=== PATIENT | male | born 1965 | race Caucasian/White ===

== ENCOUNTER 2016-11-22 06:29 | Day surgery (SDC) | payer OTHER ==
--- NOTE | 2016-11-06 12:01 | HP ---
DATE OF ADMISSION: 11/15/2016 HISTORY: This is a 51-year-old man who presents for left deltoid muscle biopsy. The patient has had a several-year history of pain in his upper extremities associated with some weakness. He has also had elevation of his creatine kinase in the 800 range. Request made by medical service for muscle biopsy. Patient's past medical history is significant for hypertension, arthritis, and a history of prostate cancer. No known history of heart disease; diabetes; respiratory, renal or hepatic insufficiency. PAST SURGICAL HISTORY: Nil. ALLERGIES: None known. REGULAR MEDICATIONS: Meloxicam, lisinopril. SOCIAL HISTORY: Negative tobacco, negative alcohol. FAMILY HISTORY: Father with history of hypertension; mother with history of hypertension, asthma. Siblings: One with hypertension. REVIEW OF SYSTEMS: Nil. PHYSICAL EXAMINATION: On examination of the upper extremities, there are no neurovascular deficits noted. There is no obvious muscle wasting. Full range of motion bilaterally. IMPRESSION: A 51-year-old man with upper extremity muscle pain and weakness associated with an elevated creatine kinase for several years. Rule out myopathy. PLAN: Left deltoid muscle biopsy. Indications, alternatives, possible complications reviewed. Consent obtained. Patient was seen preoperatively by Dr. Roe. Please refer to his notes for those medical details. Mary CARRERO/[id number] cc: Tyron Roe MD
[2016-11-21 11:16] VITALS: BMI 25.8
[2016-11-22] MEDS ORDERED: MIDAZOLAM HCL 2 MG/2 ML SINGLE DOSE VIAL ONE ×2 (07:46→08:14)
[2016-11-22] MEDS ORDERED: PROPOFOL 20 ML ONE (07:46)
[2016-11-22] MEDS ORDERED: LIDOCAINE 1%/EPI 1:100000 (50 ML MULTI DOSE VIAL) ONE (08:11)
[2016-11-22] MEDS ORDERED: LEVOFLOXACIN 500 MG IVPB 100 ML IVPB ONE (08:17)
[2016-11-22] MEDS ORDERED: LEVOFLOXACIN 500 MG PREMIX BAG IVPB ONE (08:17)
[2016-11-22] MEDS ORDERED: LIDOCAINE 1%/EPI 1:100000 (50 ML MULTI DOSE VIAL) INF ONE ×2 (08:27)
[2016-11-22] MEDS ORDERED: DEXAMETHASONE SOD PHOSPHATE 4 MG/1 ML VIAL ONE (08:31)
[2016-11-22] MEDS ORDERED: KETOROLAC TROMETHAMINE 30 MG/1 ML VIAL ONE (08:31)
[2016-11-22] MEDS ORDERED: ONDANSETRON 4 MG/2 ML VIAL IVPUSH PRN (08:49)
[2016-11-22] MEDS ORDERED: oxyCODONE HCL 5 MG TABLET PO PRN (08:49)
[2016-11-22] MEDS ORDERED: LACTATED RINGERS SOLUTION 1,000 ML IV SCH (09:00)
[2016-11-22 09:28] VITALS: TEMP 98.4
[2016-11-22 10:33] VITALS: BP 134/65; PULSE 84
--- NOTE | 2016-11-22 20:14 | OP ---
DATE OF OPERATION: 11/22/2016 PREOPERATIVE DIAGNOSIS: Clinical myositis/elevated CPK. POSTOPERATIVE DIAGNOSIS: Clinical myositis/elevated CPK (final pathology pending). PROCEDURE: Left deltoid muscle/intermediate wound closure (5 cm). OPERATING SURGEON: Joy Wood MD SECURITY TEST ENGINEER: None. ANESTHESIA: Barron Morgan MD (Local/MAC) HISTORY: A 51-year-old man and through the ambulatory surgical unit for left deltoid muscle biopsy at the request of the medical service to rule out an underlying myositis. Indications, alternatives, possible complications reviewed. Consent obtained. PROCEDURE: With the patient in the right lateral decubitus position, the left deltoid region was prepped and draped in usual sterile fashion using chlorhexidine. A 5 cm longitudinal incision was made over the central aspect of the deltoid musculature. The incision was deepened into the subcutaneous space. The subcutaneous tissues were divided. The muscle fascia was identified and incised. A small piece of tongue depressor was used to affix the muscle. It was placed in the wound and the muscle was affixed to the small piece of wooden tongue depressor using interrupted 3-0 chromic sutures. Using sharp dissection, a portion of the muscle was harvested, which was adherent to the wooden tongue depressor. The specimen was delivered and sent fresh to Pathology. After adequate hemostasis, the wound was closed in layers. The fascia layer was approximated using interrupted 3-0 chromic suture. Subcutaneous layer was approximated with interrupted 3-0 chromic suture. Subcuticular was approximated with interrupted 4-0 Biosyn suture. The skin edges were approximated using 4-0 Biosyn in subcuticular space in continuous fashion. Dermabond applied. Procedure terminated. Instrument count correct. Estimated blood loss minimal. SPECIMEN: Left deltoid muscle biopsy. DRAINS: None. IMPLANT: None. Patient tolerated procedure, procedure was terminated. JOY WOOD M.D. SYED/[id number] cc: Tyron Roe MD MTD
--- NOTE | 2016-11-30 18:09 | PATH ---
Surgical Pathology Report Patient Name: LISE URBAN [facility]. Rec. #: [id number] /Age/Gender: 1965 (Age: 51) / M Account: [id number] Location: [facility] SUR[facility]ICAL Taken: 11/22/2016 Received: 11/22/2016 Reported: 11/30/2016 Physicians: Wellington Wood M.D. Specimen(s) Received MUSCLE BIOPSY SEND OUT Clinical History According to Dr. Wellington Wood's note dated 11/08/16, the patient is a 51 year old man with hypertension and a several year history of pain and weakness in his upper extremities. CK has been elevation (~800). Final Diagnosis MUSCLE, UNSPECIFIED SITE, BIOPSY: SKELETAL MUSCLE WITH MILD NONSPECIFIC ABNORMALITY (SEE COMMENT). Comment: The muscle biopsy shows scattered atrophic fibers with a non-specific distribution pattern. A few ring fibers are present. The etiology of these non-specific changes are undeterminable on purely morphological grounds. There is no myonecrosis, regeneration or inflammation in this biopsy. Microscopic description: Fiber size; there scattered, mildly atrophic fibers without grouping. An ATPase stain shows atrophic fibers are either type 1 or type 2. There is no significant increase in the number of internally nucleated fibers. Targetoid structures: A few fibers show irregular central pallor. Necrotic sarcoplasm: none. Regeneration: none. Rimmed vacuoles: none. There are a few ring fibers by HADH. No fibers harbor abnormal intracytoplasmic structures such as rods and cytoplasmic bodies. While a few fibers exhibit slight sarcolemmal enhancement by SDH, no characteristic ragged blue fibers are seen. An acid phosphatase stain shows no abnormally aggregated enzymatic reaction in individual sarcoplasm. Myoadenylate deaminase is histochemically normal. Blood vessels: no features indicative of vasculitis. Cellular response: no significant inflammation seen. Interstitial tissue: A trichrome stain shows no significant fibrosis. Other: A thioflavin S stain is negative for amyloid. Immunohistochemical stains for HLA-A, B,C (MHC class I) show no significant immunoreaction along the surface of myofibers. Immunohistochemical staining for dystrophin (C-terminus, mid-nancy), alpha-sarcoglycan, dysferlin, and caveolin-3 reveal no specific protein deficiency. No significant upregulation of utrophin is detectable. See report from [facility], [id number]. Signed by Daniel Maza M.D. Electronically Signed Maury Willett M.D. Gross Description Received fresh is a 2.0 x 0.6 x 0.4 cm portion of muscle. A portion is attached to a wooden stick and placed in saline soaked gauze. 2 additional portions are submitted in formalin and glutaraldehyde. [place] [facility] [place]. DL11/22/2016 saudi11/22/2016
== END 2016-11-22 10:30 | disposition home or self-care (01) ==
LOC: JASU-SURG 06:29
PROVIDERS: ATTEND Surgery
PROC: 0KB60ZX Excision of Left Shoulder Muscle, Open Approach, Diagnostic (ICD-10-PCS; principal; 2016-11-22 08:00)
DX: M60.9 Myositis, unspecified (principal)
CPT/HCPCS: 88300-TC; 94760

== ENCOUNTER 2024-04-21 05:06 | Day surgery (SDC) | payer OTHER ==
[2024-04-17 11:35] VITALS: BMI 25.7
[2024-04-21] MEDS ORDERED: MIDAZOLAM HCL 2 MG/2 ML SINGLE DOSE VIAL ONE (08:12)
[2024-04-21 09:15] VITALS: TEMP 97.2
[2024-04-21 09:48] VITALS: RESP 18
[2024-04-21] MEDS: ENALAPRILAT DIHYDRATE 2.5 MG/2 ML VIAL IVPB ONE (10:28)
[2024-04-21 11:14] VITALS: BP 204/115; PULSE 73
== END 2024-04-21 11:22 | disposition home or self-care (01) ==
LOC: JASU-ENDO 05:06
PROVIDERS: ATTEND Internal Medicine Gastroenterology
PROC: 0DBN8ZX Excision of Sigmoid Colon, Via Natural or Artificial Opening Endoscopic, Diagnostic (ICD-10-PCS; 2024-04-21)
PROC: 0DBH8ZX Excision of Cecum, Via Natural or Artificial Opening Endoscopic, Diagnostic (ICD-10-PCS; 2024-04-21)
PROC: 0DBL8ZX Excision of Transverse Colon, Via Natural or Artificial Opening Endoscopic, Diagnostic (ICD-10-PCS; 2024-04-21)
PROC: 3E0H8KZ Introduction of Other Diagnostic Substance into Lower GI, Via Natural or Artificial Opening Endoscopic (ICD-10-PCS; 2024-04-21)
PROC: 0DBP8ZX Excision of Rectum, Via Natural or Artificial Opening Endoscopic, Diagnostic (ICD-10-PCS; principal; 2024-04-21 08:00)
DX: R19.5 Other fecal abnormalities (principal); D12.0 Benign neoplasm of cecum; D12.2 Benign neoplasm of ascending colon; D12.5 Benign neoplasm of sigmoid colon; D12.8 Benign neoplasm of rectum; K64.8 Other hemorrhoids
CPT/HCPCS: 88305-TC

== ENCOUNTER 2024-04-21 11:29 | Emergency (ER) | payer OTHER ==
[2024-04-21 11:56] VITALS: BMI 25.7
[2024-04-21 12:41] LABS: BASO % 0.2 % (0-2.0); EOS % 1.2 % (0-4.5); HEMATOCRIT 40.2 % (35.4-49); HEMOGLOBIN 14.1 GM/dL (11.7-16.9); LYMPH % 22.8 % (8-40); MCH 32.4 pg (25.7-33.7); MEAN CELL VOLUME 92.6 fl (80-96); MEAN PLT VOLUME 7.3 fl (7.5-11.1); MONO % 8.8 % (3.8-10.2); PLATELET COUNT 179 10^3/uL (134-434); RBC 4.35 M/mm3 (4.00-5.60); WHITE BLOOD COUNT 5.4 K/mm3 (4.0-10.0)
[2024-04-21 13:01] LABS: POTASSIUM 4.7 mmol/L (3.5-5.1)
[2024-04-21 13:03] LABS: ALBUMIN 3.6 g/dl (3.4-5.0); BLOOD UREA NITROGEN 12.6 mg/dL (7-18); CALCIUM 9.1 mg/dL (8.5-10.1)
[2024-04-21 13:07] LABS: CREATININE 0.7 mg/dL (0.55-1.3)
[2024-04-21 13:08] LABS: BILIRUBIN,TOTAL 0.6 mg/dL (0.2-1); TOT PROT 6.4 g/dl (6.4-8.2)
[2024-04-21 13:54] VITALS: BP 174/97; PULSE 69; RESP 20; TEMP 98
== END 2024-04-21 13:55 | disposition home or self-care (01) ==
LOC: JER 11:29
DX: I10 Essential (primary) hypertension (principal)
CPT/HCPCS: 36415; 71046-TC-FY; 80053; 84484; 85025; 93005; 93010; 99285-25

== ENCOUNTER 2024-10-11 23:47 | Emergency (ER) | payer OTHER ==
[2024-10-11 23:56] VITALS: BMI 25.9
[2024-10-12 00:01] VITALS: BP 122/76; PULSE 71; RESP 18; TEMP 97.9
[2024-10-12 01:31] LABS: BASO % 0.1 % (0-2.0); EOS % 1.2 % (0-4.5); LYMPH % 19.5 % (8-40); MCHC 35.3 g/dl (32.0-35.9); MEAN CELL VOLUME 93.4 fl (80-96); MEAN PLT VOLUME 7.7 fl (7.5-11.1); NEUT % 66.2 % (42.8-82.8); PLATELET COUNT 174 10^3/uL (134-434); RBC 3.96 M/mm3 (4.00-5.60); WHITE BLOOD COUNT 7.4 K/mm3 (4.0-10.0)
[2024-10-12 01:46] LABS: POTASSIUM 4.1 mmol/L (3.5-5.1)
[2024-10-12 01:47] LABS: CALCIUM 8.6 mg/dL (8.5-10.1)
[2024-10-12 01:48] LABS: ALBUMIN 3.5 g/dl (3.4-5.0); BLOOD UREA NITROGEN 16.2 mg/dL (7-18)
[2024-10-12 01:51] LABS: CREATININE 1.1 mg/dL (0.55-1.3)
[2024-10-12 01:53] LABS: BILIRUBIN,TOTAL 0.3 mg/dL (0.2-1); TOT PROT 6.3 g/dl (6.4-8.2)
== END 2024-10-12 03:33 | disposition home or self-care (01) ==
LOC: FER 23:47
DX: R55 Syncope and collapse (principal); E86.0 Dehydration
CPT/HCPCS: 36415; 70450-TC; 71045-TC-FY; 80053; 84484; 85025; 93005; 99285-25

== ENCOUNTER 2024-10-24 23:28 | Emergency (ER) | payer OTHER ==
[2024-10-24 23:35] VITALS: BP 176/83; PULSE 82; RESP 18; TEMP 98.5; BMI 25.7
[2024-10-24] MEDS ORDERED: methylPREDNISolone NA SUCC 125 MG/2 ML VIAL ONE (23:39)
[2024-10-24] MEDS ORDERED: diphenhydrAMINE HCL 25 MG CAPSULE (FP) PO ONE (23:44)
[2024-10-24] MEDS: methylPREDNISolone NA SUCC 125 MG/2 ML VIAL IVPUSH ONE (23:54)
[2024-10-24] MEDS: diphenhydrAMINE HCL 50 MG CAPSULE PO ONE (23:54)
== END 2024-10-25 00:20 | disposition home or self-care (01) ==
LOC: FER 23:28
PROC: 3E033GC Introduction of Other Therapeutic Substance into Peripheral Vein, Percutaneous Approach (ICD-10-PCS; principal; 2024-10-24)
DX: L50.0 Allergic urticaria (principal); R21 Rash and other nonspecific skin eruption; K13.0 Diseases of lips
CPT/HCPCS: 99284-25